=== PATIENT | female | born 1970 | race Caucasian/White ===

== ENCOUNTER → 2017-04-13 | Outpatient (CLI) | payer BC ==
[~2017-04-13] MED LIST: MAKENA250 MG/ML IM; MOTRIN 600600 MG/TAB PO; PERCOCET 325 MG1 TA2 PO; PRENATAL1 TA1 PO
== END ==
LOC: MC.RAD 09:11
DX: Z12.31 Encounter for screening mammogram for malignant neoplasm of breast (principal)